=== PATIENT | male | born 2000 | race Caucasian/White ===

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

== ENCOUNTER 2019-01-20 03:07 | Emergency (ER) | payer OTHER ==
[~2019-01-20] VITALS: Ht 170.2 cm; Wt 77.1 kg
[2019-01-20 04:03] VITALS: BP 136/68
== END 2019-01-20 04:08 | disposition home or self-care (01) ==
LOC: M.ERS 03:07
DX: M54.2 Cervicalgia (principal); R10.30 Lower abdominal pain, unspecified; J45.909 Unspecified asthma, uncomplicated; F17.210 Nicotine dependence, cigarettes, uncomplicated; V89.2XXA Person injured in unspecified motor-vehicle accident, traffic, initial encounter; Y93.89 Activity, other specified; Y92.89 Other specified places as the place of occurrence of the external cause; Y99.8 Other external cause status

== ENCOUNTER 2019-02-09 03:21 | Emergency (ER) | payer OTHER ==
[~2019-02-09] VITALS: Ht 167.6 cm; Wt 68.0 kg
[2019-02-09] MEDS ORDERED: PREDNISONE50 MG PO (03:36)
[2019-02-09] MEDS ORDERED: AZITHROMYCIN 2250 MG PO (03:36)
[2019-02-09] MEDS ORDERED: VENTOLIN HFA 1818 GM INH (03:36)
[2019-02-09 03:43] VITALS: BP 118/49
== END 2019-02-09 03:44 | disposition home or self-care (01) ==
LOC: M.ERS 03:21
DX: J06.9 Acute upper respiratory infection, unspecified (principal); J45.909 Unspecified asthma, uncomplicated; F17.210 Nicotine dependence, cigarettes, uncomplicated

== ENCOUNTER 2019-06-24 09:38 | Emergency (ER) | payer OTHER ==
[~2019-06-24] VITALS: Ht 167.6 cm; Wt 70.3 kg
[2019-06-24 10:25] VITALS: BP 118/59
== END 2019-06-24 10:25 | disposition home or self-care (01) ==
LOC: M.ERS 09:38
DX: J02.9 Acute pharyngitis, unspecified (principal); J45.909 Unspecified asthma, uncomplicated; F17.210 Nicotine dependence, cigarettes, uncomplicated